=== PATIENT | female | born 1995 | race Caucasian/White ===

== ENCOUNTER 2016-10-19 16:47 | Emergency (ER) | payer OTHER | END 2016-10-19 19:04 | disposition left against medical advice (07) | LOC: FER 16:47 | DX: M25.572 Pain in left ankle and joints of left foot (principal); W19.XXXA Unspecified fall, initial encounter; Z53.8 Procedure and treatment not carried out for other reasons ==

== ENCOUNTER 2021-08-09 11:33 | Emergency (ER) | payer OTHER ==
[~2021-08-09 11:33] MED LIST: ATIVAN0.5 MG PO; BACTRIM DS TAB1 EACH PO; DIFLUCAN150 MG PO; IBUPROFEN800 MG PO; MACROBID100 MG PO; NAPROXEN500 MG PO; bcp
[2021-08-09] MEDS ORDERED: ONDANSETRON ODT4 MG PO (14:51)
[2021-08-09] MEDS ORDERED: OXY-IR 5MG5 MG PO (14:51)
== END 2021-08-09 15:13 | disposition home or self-care (01) ==
LOC: FER 11:33
DX: S32.19XA Other fracture of sacrum, initial encounter for closed fracture (principal); Z91.040 Latex allergy status; W01.0XXA Fall on same level from slipping, tripping and stumbling without subsequent striking against object, initial encounter; Y92.009 Unspecified place in unspecified non-institutional (private) residence as the place of occurrence of the external cause; Z28.310 Unvaccinated for COVID-19
CPT/HCPCS: 72131; 72192; J1885